=== PATIENT | male | born 1980 | race Caucasian/White ===

== ENCOUNTER 2024-05-20 08:36 | Emergency (ER) | payer OTHER ==
[2024-05-20] MEDS ORDERED: Buprenorphine 2mg/Naloxone 0.5mg per 1 FILM SL SCH (10:45)
[2024-05-20] MEDS ORDERED: Lacosamide 50 mg Tablet PO SCH (10:45)
[2024-05-20] MEDS ORDERED: Acetaminophen 500 MG TAB ONE (11:19)
[2024-05-20] MEDS ORDERED: Gabapentin 300 MG CAP ONE (11:20)
[2024-05-20] MEDS ORDERED: levETIRAcetam 500 MG TAB ONE (11:20)
[2024-05-20] MEDS ORDERED: Lacosamide 50 mg Tablet ONE (12:03)
== END 2024-05-20 14:00 | disposition home or self-care (01) ==
LOC: ERS 08:36
DX: G40.909 Epilepsy, unspecified, not intractable, without status epilepticus (principal); Z79.899 Other long term (current) drug therapy
CPT/HCPCS: 36415; 70450; 80053; 80177; 80307; 80339; 85025; 93005; 94760; 96365; 96375; 99284; G0480; J0571; J0572; J0780; J1200; J1953

== ENCOUNTER 2024-05-20 18:17 | Emergency (ER) | payer OTHER ==
[2024-05-20] MEDS ORDERED: levETIRAcetam 500 MG (5 mL) VIAL ONE (18:40)
[2024-05-20] MEDS ORDERED: Acetaminophen 500 MG TAB ONE (18:40)
[2024-05-20] MEDS ORDERED: Lacosamide 50 mg Tablet ONE (18:41)
[2024-05-20] MEDS ORDERED: Gabapentin 300 MG CAP ONE (18:41)
[2024-05-20 19:26] LABS: Acetaminophen Less than 10 mcg/mL (Less than 10); Alcohol Less than 10.0 mg/dL (Less than 10); Salicylate Less than 8.0 mg/dL (Less than 8.0)
[2024-05-20 19:27] LABS: ALT (SGPT) 21 U/L (8-55); AST (SGOT) 29 U/L (5-34); Albumin 4.2 g/dL (3.5-5.0); Alkaline Phosphatase 83 U/L (40-110); Anion Gap 13 mmol/L (10-20); BUN (Urea Nitrogen) 11 mg/dL (8.9-20.6); Bilirubin, Total 0.5 mg/dL (0.2-1.2); Calc. Creatinine Clearance 0 mL/min (70-130); Calcium 9.3 mg/dL (7.8-10.44); Carbon Dioxide 28 mmol/L (22-29); Chloride 104 mmol/L (98-107); Estimated GFR 96; Globulin 3.2 g/dL (2.4-3.5); Glucose 92 mg/dL (70-105); Potassium 4.1 mmol/L (3.5-5.1); Protein, Total 7.4 g/dL (6.0-8.3); Sodium 141 mmol/L (136-145)
[2024-05-20] MEDS ORDERED: Buprenorphine HCl 2 MG SL TAB ONE (19:37)
[2024-05-20 19:40] LABS: Hypochromia SLIGHT = 6-15 cells HPF (0-5); Microcytosis SLIGHT = 6-15 cells HPF (0-5); Ovalocytes SLIGHT = 2-5 cells HPF (0-1); Platelet Adequacy Comment Platelets Normal; Polychromasia SLIGHT = 2-3 cells HPF (0-2)
[2024-05-20 19:41] LABS: #Basophils 0.05 10x3/uL (0.0-0.2); %Basophils 0.5 % (0.0-1.0); %Eosinophils 0.6 % (0.0-10.0); %Lymphocytes 9.2 % (21.0-51.0); %Monocytes 6.2 % (0.0-10.0); %Neutrophils 83.3 % (42.0-75.0); Hematocrit 34.5 % (42.0-52.0); Hemoglobin 9.9 g/dL (14.0-18.0); Mean Corpuscular HGB CONC 28.7 g/dL (32.0-36.0); Mean Corpuscular Hemoglobin 20.4 pg (27.0-31.0); Mean Corpuscular Volume 71.1 fL (78.0-98.0); Mean Platelet Volume 9.5 fL (7.4-10.4); Platelet Count 316 10x3/uL (130-400); RBC Distribution Width 17.4 % (11.5-14.5); Red Blood Cell (RBC) Count 4.85 mill/uL (4.70-6.10)
[2024-05-20] MEDS ORDERED: Buprenorphine 2mg/Naloxone 0.5mg per 1 FILM SL SCH (20:30)
[2024-05-20] MEDS ORDERED: diphenhydrAMINE 50 MG/ML VIAL ONE (20:46)
[2024-05-20] MEDS ORDERED: Prochlorperazine 10 MG/2 ML VIAL ONE (20:46)
== END 2024-05-20 22:59 ==
LOC: ERS 18:17
DX: R56.9 Unspecified convulsions (principal); F17.220 Nicotine dependence, chewing tobacco, uncomplicated
CPT/HCPCS: 36415; 70450; 80053; 80177; 80307; 80339; 85025; 93005; 94760; G0480; J0571; J0572; J0780; J1200; J1953